=== PATIENT | female | born 1985 | race Two or more races ===

== ENCOUNTER 2025-01-08 22:23 | Emergency (ER) | payer OTHER ==
[~2025-01-08] VITALS: Ht 165.1 cm; Wt 104.4 kg
[2025-01-08 23:22] LABS: Basophils # (auto) 0.1 10 ^3/uL (0-0.2); Basophils % (auto) 0.7 % (0.0-2.0); Eosinophils # (auto) 0.3 10 ^3/uL (0-0.8); Eosinophils % (auto) 2.6 % (0.0-7.0); Hematocrit 41.8 % (36.0-46.0); Hemoglobin 14.2 g/dL (12.2-16.2); Lymphocytes # (auto) 4.9 10 ^3/uL (0.4-5.4); Lymphocytes % (auto) 36.8 % (10.0-50.0); Mean Corpuscular Hgb Conc. 33.9 g/dL (32.0-36.0); Mean Corpuscular Volume 88.5 fL (80.0-100.0); Monocytes # (auto) 0.9 10 ^3/uL (0-1.3); Neutrophils % (auto) 52.9 % (37.0-80.0); Nucleated Red Blood Cells % 0.1 %; Platelet Count (auto) 250 10^3/uL (140-450); Red Blood Cells 4.72 10^6/uL (4.0-5.20); Red Cell Distribution Width 12.7 % (11.8-14.3); White Blood Cell 13.3 10^3/uL (4.4-10.8)
[2025-01-08 23:55] LABS: Potassium 4.4 mmol/L (3.5-5.1); Sodium 141 mmol/L (136-145)
[2025-01-08 23:56] LABS: Anion Gap 10 (5-15); Calcium 9.6 mg/dL (8.7-10.4); Carbon Dioxide 21 mmol/L (20-31)
[2025-01-09 00:01] LABS: BUN/Creatinine Ratio 11.2 (10.0-20.0); Blood Urea Nitrogen 10 mg/dL (9-23); Glucose 85 mg/dL (74-106)
[2025-01-09 00:08] LABS: Chloride 110 mmol/L (98-107)
--- NOTE | 2025-01-09 00:14 | ED.PDOC ---
History of Present Illness HPI Comments 39-year-old female with history of hypertension and anxiety here today status post near syncopal episode while lying in bed. Patient states that she was lying in bed when she suddenly started to feel shortness of breath, her hands cramped up, and she started to feel lightheaded and like she was about to pass out but did not actually pass out. She states that she could hear people talking to her about felt like she could not answer because she was so out of breath. On arrival to the ER, the patient states that she feels asymptomatic. No chest pain. No loss of consciousness. No recent head trauma. No recent foreign travel. No nausea, vomiting, diarrhea, fevers, chills. No other pain or symptoms. No alcohol, cigarette, or drug use. Patient feels safe at home. No suicidal or homicidal thoughts. No hallucinations. Chief Complaint: Syncope Time Seen by MD: 22:34 Allergies: Coded Allergies: NO KNOWN ALLERGIES (Unverified , 01/08/25) Mode of Arrival: Ambulatory Past Medical History PAST MEDICAL HISTORY: Denies All Other Systems: Reviewed and Negative (Negative except as noted in HPI) Physical Exam General Appearance: No Apparent Distress, Normal HEENT: Normal ENT Inspection, Pharynx Normal, TMs Normal Neck: Full Range of Motion, Non-Tender, Normal, Normal Inspection Respiratory: Chest Non-Tender, Lungs Clear, No Accessory Muscle Use, No Respiratory Distress, Normal Breath Sounds Cardiovascular: No Edema, No JVD, No Murmur, No Gallop, Normal Peripheral Pulses, Regular Rate/Rhythm Breast Exam: Deferred Gastrointestinal: No Organomegaly, Non Tender, No Pulsatile Mass, Normal Bowel Sounds, Soft Genitalia: Deferred Pelvic: Deferred Rectal: Deferred Extremities: No calf tenderness, Normal capillary refill, Normal inspection, Normal range of motion, Non-tender, No pedal edema Musculoskeletal : Apperance: Normal Neurologic: Alert, autocad draftsman II-XII nml as Tested, No Motor Deficits, Normal Affect, Normal Mood, No Sensory Deficits Cerebellar Function: Normal Reflexes: Normal Skin: Dry, Normal Color, Warm Lymphatic: No Adenopathy Was a procedure done? Was a procedure done?: No EKG EKG : [place]: Normal ST: Normal Comments No STEMI Differential Dx Considerations may include: ACS, PE, anxiety reaction, stimulant use, panic attack X-Ray, Labs, Meds, VS Vital Signs Date Time Temp Pulse Resp B/P (MAP) Pulse Ox O2 Delivery O2 Flow Rate FiO2 01/08/25 22:48 77 16 97 Room Air 0 01/08/25 22:40 71 01/08/25 22:37 98.6 77 16 139/79 (99) 97 98.6 Lab Test 01/08/25 22:54 Range/Units White Blood Count 13.3 H 4.4-10.8 10^3/uL Red Blood Count 4.72 4.0-5.20 10^6/uL Hemoglobin 14.2 12.2-16.2 g/dL Hematocrit 41.8 36.0-46.0 % Mean Corpuscular Volume 88.5 80.0-100.0 fL Mean Corpuscular Hemoglobin 30.0 28.0-32.0 pg Mean Corpuscular Hemoglobin Concent 33.9 32.0-36.0 g/dL Red Cell Distribution Width 12.7 11.8-14.3 % Platelet Count 250 140-450 10^3/uL Mean Platelet Volume 8.2 6.9-10.8 fL Neutrophils (%) (Auto) 52.9 37.0-80.0 % Lymphocytes (%) (Auto) 36.8 10.0-50.0 % Monocytes (%) (Auto) 7.0 0.0-12.0 % Eosinophils (%) (Auto) 2.6 0.0-7.0 % Basophils (%) (Auto) 0.7 0.0-2.0 % Neutrophils # (Auto) 7.0 1.6-8.6 10 ^3/uL Lymphocytes # (Auto) 4.9 0.4-5.4 10 ^3/uL Monocytes # (Auto) 0.9 0-1.3 10 ^3/uL Eosinophils # (Auto) 0.3 0-0.8 10 ^3/uL Basophils # (Auto) 0.1 0-0.2 10 ^3/uL Nucleated Red Blood Cells 0.1 % Sodium Level 141 136-145 mmol/L Potassium Level 4.4 3.5-5.1 mmol/L Chloride Level 110 H 98-107 mmol/L Carbon Dioxide Level 21 20-31 mmol/L Anion Gap 10 5-15 Blood Urea Nitrogen 10 9-23 mg/dL Creatinine 0.89 0.550-1.02 mg/dL Glomerular Filtration Rate Calc 83 >90 mL/min BUN/Creatinine Ratio 11.2 10.0-20.0 Serum Glucose 85 74-106 mg/dL Calcium Level 9.6 8.7-10.4 mg/dL Troponin I High Sensitivity < 3 L </=34 ng/L X-Ray, Labs, Meds, VS Comment Patient here today with complaints of near-syncopal episode. Vital signs stable, afebrile. Physical exam as above without any acute findings including a normal neurologic exam, no evidence of oral trauma, no evidence of bowel or bladder incontinence. Labs overall reassuring and patient with negative urine test. EKG without evidence of AV block, Brugada, QTC prolongation, delta waves, epsilon waves, LVH, or right ventricular strain. Patient's [place] syncope score very low risk. No postictal state, oral trauma, nor incontinence so doubt seizure. No recent head trauma. I instructed the patient to follow up with their primary care provider within 2-3 days for re-evaluation. I also provided them with strict return precautions for further syncopal episodes, chest pain, palpitations, focal numbness or weakness, vision changes, p.o. intolerance, fevers, or any other concerning symptoms. Patient expressed understanding. Patient was discharged home in stable condition ambulating with a steady gait without assistance and in no distress Time of 1ST Reevaluation: 23:05 Reevaluation 1ST: Improved Patient Education/Counseling: Diagnosis, Treatment, Prognosis, Need For Follow Up Family Education/Counseling: No Family Present Departure 1 Departure Time of Disposition: 00:13 Impression: Primary Impression: Near syncope Additional Impression: Anxiety reaction Disposition: HOME / SELF CARE / HOMELESS Condition: Stable Discharged With: Self Critical Care Note Critical Care Time?: No Stability Stability form required: No Heart Score Heart Score: Heart Score Response (Comments) Value History N/A 0 EKG N/A 0 Age N/A 0 Risk Factors N/A 0 Troponin N/A 0 Total 0 CURLY KHAN MD January 09, 2025 00:14
[2025-01-09 00:20] VITALS: BP 144/85; PULSE 80; RESP 14; TEMP 98.8; O2SAT 96
--- NOTE | 2025-01-09 06:46 | ECG ---
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
== END 2025-01-09 00:36 | disposition home or self-care (01) ==
LOC: ER 22:23
DX: F41.1 Generalized anxiety disorder (principal); I10 Essential (primary) hypertension
CPT/HCPCS: 36415; 80048; 84484; 85025; 93005

== ENCOUNTER 2025-01-11 00:25 | Emergency (ER) | payer OTHER ==
[~2025-01-11] VITALS: Ht 165.1 cm; Wt 100.0 kg
[2025-01-11 00:35] VITALS: BP 141/73; PULSE 88; RESP 18; TEMP 98.4; O2SAT 96
--- NOTE | 2025-01-11 00:44 | ED.PDOC ---
Back pain HPI HPI Comments PATIENT STATES November SHE WAS LIFTING HEAVY BOXES FOR WORK AND INJURED HER RIGHT HAMSTRING. STATES PAIN HAS INCREASED OVER THE LAST WEEK. HAS SEEN DOCTOR, RECOMMENDED TYLENOL/MOTRIN AND ICE. DENIES NEW INJURY NUMBNESS OR WEAKNESS. Time Seen by MD: 00:36 Reviewed Notes: Nurses Notes, Medications, Allergies Allergies: Coded Allergies: NO KNOWN ALLERGIES (Unverified , 01/08/25) Home Meds Active Scripts Tizanidine Hydrochloride (Tizanidine Hcl) 4 Mg Tab, 4 MG PO BID PRN for 5 Days, #10 TAB Prov:VELMA LOPEZ PARTS IDENTIFICATION TECHNICIAN 01/11/25 Methylprednisolone (Medrol Dosepak) 4 Mg [place], 4 MG PO UD for 6 Days, #21 TAB UAD Prov:VELMA LOPEZ [facility] 01/11/25 Information Source: Patient Past Medical History PAST MEDICAL HISTORY: Denies Surgical History: Denies all surgeries WATCHGUARD History: No Pertinent WATCHGUARD History Family History Family History: Unknown Social History Smoker: Non-Smoker Alcohol: Denies ETOH Use Drugs: Denies Drug Use Constitutional: denies: chills, diaphoresis, fatigue, fever, malaise, sweats, weakness, others EENTM: denies: blurred vision, double vision, ear bleeding, ear discharge, ear drainage, ear pain, ear ringing, eye pain, eye redness, hearing loss, mouth pain, mouth swelling, nasal discharge, nose bleeding, nose congestion, nose pain, photophobia, tearing, throat pain, throat swelling, voice changes, others Respiratory: denies: cough, hemoptysis, orthopnea, SOB at rest, shortness of breath, SOB with excertion, stridor, wheezing, others Cardiovascular: denies: chest pain, dizzy spells, diaphoresis, Dyspnea on exertion, edema, irregular heart beat, left arm pain, lightheadedness, palpitations, PND, syncope, others Genitourinary: denies: abnormal vagina bleeding, burning, dyspareunia, dysuria, flank pain, frequency, hematuria, incontinence, pain, , vagina discharge, urgency, others Neurological: denies: dizziness, fainting, headache, left sided numbness, left sided weakness, numbness, paresthesia, pre-existing deficit, right sided numbness, right sided weakness, seizure, speech problems, tingling, tremors, weakness, others Musculoskeletal: reports: others (LEFT UPPER LEG PAIN); denies: back pain, gout, joint pain, joint swelling, muscle pain, muscle stiffness, neck pain Integumetry: denies: bruises, change in color, change in hair/nails, dryness, laceration, lesions, lumps, rash, wounds, others Allergic/Immunocompromised: denies: Difficulty Healing, Frequent Infections, Hives, Itching, others Hematologic/Lymphatic: denies: anemia, blood clots, easy bleeding, easy bruising, swollen glands, others Endocrine: denies: excessive hunger, excessive sweating, excessive thirst, excessive urination, flushing, intolerance to cold, intolerance to heat, unexplained weight gain, unexplained weight loss, others Psychiatric: denies: anxiety, bipolar disorder, depression, hopeless, panic disorder, schizophrenia, sleepless, suicidal, others Physical Exam General Appearance: No Apparent Distress, Normal HEENT: Pharynx Normal Neck: Full Range of Motion, Non-Tender Respiratory: Lungs Clear, No Respiratory Distress, Normal Breath Sounds Cardiovascular: No Murmur, Normal Peripheral Pulses, Regular Rate/Rhythm Breast Exam: Deferred Gastrointestinal: Non Tender, Soft Genitalia: Deferred Pelvic: Deferred Rectal: Deferred Extremities: Normal capillary refill, Normal inspection, Normal range of motion, Non-tender, No pedal edema Musculoskeletal : Location: Left Extremity Location: Thigh (LEFT POSTERIOR LEG TENDERNESS ON PALPATION NO NOTED OBVIOUS VISIBLE EXTERNAL TRAUMA STRENGTH SENSORY MOTION INTACT POSITIVE PEDAL PULSE.) Apperance: Normal Neurologic: Alert, watch parts grinder II-XII nml as Tested, No Motor Deficits, Normal Affect, Normal Mood, No Sensory Deficits Cerebellar Function: Normal Reflexes: Normal Skin: Dry, Normal Color, Warm Lymphatic: No Adenopathy Was a procedure done? Was a procedure done?: No Back Pain Differential Dx Differential Diagnosis: Fracture, Musculoskeletal Pain, Strain X-Ray, Labs, Meds, VS Vital Signs Date Time Temp Pulse Resp B/P (MAP) Pulse Ox O2 Delivery O2 Flow Rate FiO2 01/11/25 00:35 98.4 88 18 141/73 (95) 96 98.4 Current Medications Medications (Trade) Dose Ordered Sig/Makenzie Route Start Time Stop Time Status Last Admin Ketorolac Tromethamine (Toradol Injection) 60 mg ONCE ONCE IM 01/11/25 01:30 01/11/25 01:31 DC 01/11/25 01:48 Acetaminophen/ Hydrocodone Bitart ([place] 5/325MG Tab) 1 tab ONCE ONCE PO 01/11/25 01:30 01/11/25 01:31 DC 01/11/25 01:45 X-Ray, Labs, Meds, VS Comment PATIENT GIVEN TORADOL 60 MG IM AND NORCO 5 MG P.O. REPORTS IMPROVEMENT PAIN AND FUNCTION REQUESTING DISCHARGE AT THIS TIME. ADVISED PATIENT TO FOLLOW UP WITH [facility]OY[facility] CONSIDER MRI IF SYMPTOMS PERSIST. SCRIPT MEDROL DOSEPAK AND A MUSCLE RELAXER ADVISED TO TAKE MEDICATIONS PRESCRIBED SIDE EFFECTS DISCUSSED. ADVISED TO CONTINUE TO ELEVATE ALTERNATE BETWEEN ICE AND HEAT. ER RETURN PRECAUTIONS GIVEN PATIENT INDICATES UNDERSTANDING AGREES WITH DISCHARGE PLAN OF CARE. Time of 1ST Reevaluation: 00:44 Reevaluation 1ST: Unchanged Time of 2ND Reevaluation: 01:52 Reevaluation 2ND: Improved Patient Education/Counseling: Diagnosis, Treatment, Prognosis, Need For Follow Up Family Education/Counseling: No Family Present Departure 1 Departure Time of Disposition: 01:52 Impression: Primary Impression: Muscle strain of right thigh Qualified Codes: S76.911A - Strain of unspecified muscles, fascia and tendons at thigh level, right thigh, initial encounter Disposition: HOME / SELF CARE / HOMELESS Condition: Stable e-Prescriptions Tizanidine Hydrochloride (Tizanidine Hcl) 4 Mg Tab 4 MG PO BID PRN for 5 Days, #10 TAB Prov: VELMA LOPEZ 01/11/25 Methylprednisolone (Medrol Dosepak) 4 Mg [place] 4 MG PO UD for 6 Days, #21 TAB UAD Prov: VELMA LOPEZ 01/11/25 Discharged With: Self Critical Care Note Critical Care Time?: No Stability Stability form required: No VELMA LOPEZ January 11, 2025 00:44
[2025-01-11] MEDS ORDERED: TIZA-142 PO (01:36)
[2025-01-11] MEDS ORDERED: METH4PAK PO (01:36)
[2025-01-11] MEDS: HYDROcodone-ACET 5/325MG TAB PO ONE (01:45)
[2025-01-11] MEDS: KETOROLAC TROMETH 60MG/2ML VIAL IM ONE (01:48)
== END 2025-01-11 01:53 | disposition home or self-care (01) ==
LOC: ER 00:25
DX: S76.811A Strain of other specified muscles, fascia and tendons at thigh level, right thigh, initial encounter (principal); X50.0XXA Overexertion from strenuous movement or load, initial encounter; Y93.89 Activity, other specified; Y92.89 Other specified places as the place of occurrence of the external cause; Y99.8 Other external cause status
CPT/HCPCS: 96372; 99283; J1885